=== PATIENT | female | born 1990 | race Caucasian/White ===

== ENCOUNTER 2024-09-01 20:10 | Emergency (ER) | payer OTHER ==
[2024-09-01 20:37] VITALS: BP 118/70; PULSE 75; RESP 16; TEMP 98; BMI 33.3
[2024-09-01 21:11] LABS: HCG,QUALITATIVE URINE Negative
[2024-09-01 21:21] LABS: EPITHELIAL CELLS MANY /hpf
[2024-09-01] MEDS ORDERED: KETOROLAC TROMETHAMINE 30 MG/1 ML VIAL ONE (21:36)
[2024-09-01] MEDS: KETOROLAC TROMETHAMINE 60 MG/2 ML VIAL IM ONE (21:39)
[2024-09-01] MEDS ORDERED: LIDOCAINE 5% TOPICAL PATCH ONE (22:59)
== END 2024-09-01 23:16 | disposition home or self-care (01) ==
LOC: FER 20:10
PROC: 3E0233Z Introduction of Anti-inflammatory into Muscle, Percutaneous Approach (ICD-10-PCS; principal; 2024-09-01)
DX: M54.50 Low back pain, unspecified (principal); X50.0XXA Overexertion from strenuous movement or load, initial encounter; Y99.0 Civilian activity done for income or pay
CPT/HCPCS: 81003; 81015; 84703; 87086; 99284-25